=== PATIENT | female | born 1955 | race Caucasian/White ===

== ENCOUNTER 2017-08-16 10:17 | Inpatient (IN) | payer BC ==
--- NOTE | 2017-08-16 10:27 | DR.GENAD ---
- Discharge Plan Condition: Stable - Follow ups/Referrals Follow ups/Referrals: ,Misc [Primary Care Provider] - 3 days - Instructions
[2017-08-16 11:02] LABS: BASOPHILS # (AUTO) 0.1 X10^3/uL (0.0-0.1); BASOPHILS % (AUTO) 1.2 % (0.2-1.0); EOSINOPHILS # (AUTO) 0.6 x10^3/uL (0.0-0.2); EOSINOPHILS % (AUTO) 6.2 % (0.9-2.9); HEMATOCRIT 46.5 % (36.0-47.0); HEMOGLOBIN 16.3 g/dL (12.0-16.0); LYMPHOCYTES # (AUTO) 2.6 X10^3/uL (1.3-2.9); LYMPHOCYTES % (AUTO) 28.4 % (21.0-51.0); MEAN CORPUSCULAR HEMOGLOBIN 30.6 pg (27.0-34.0); MEAN CORPUSCULAR HGB CONC 35.1 g/dL (33.0-35.0); MEAN CORPUSCULAR VOLUME 87.2 fL (80.0-100.0); MEAN PLATELET VOLUME 9.7 fL (7.4-11.0); MONOCYTES # (AUTO) 0.5 x10^3/uL (0.3-0.8); MONOCYTES % (AUTO) 5.1 % (0.0-13.0); NEUTROPHILS # (AUTO) 5.5 x10^3/uL (2.2-4.8); NEUTROPHILS % (AUTO) 59.1 % (42.0-75.0); PLATELET COUNT 251 X10^3/uL (150.0-450.0); RED BLOOD COUNT 5.33 X10^6/uL (3.5-5.4); RED CELL DISTRIBUTION WIDTH 13.5 % (11.6-16.5); WHITE BLOOD COUNT 9.3 X10^3/uL (3.6-10.0)
--- NOTE | 2017-08-16 11:02 | CT ---
HISTORY: Left-sided weakness with slurred speech, possible stroke Study: CT brain without contrast Comparison: No priors Technique: Multiple axial images of the brain were obtained from the skull base to the vertex without administra tion of IV contrast. Coronal and sagittal images are also reviewed. Dose reduction techniques utilize d automatic exposure control. Findings: No acute intraparenchymal hemorrhage or mass can be identified. No extra-axial fluid collections are seen. No alteration in the attenuation of the brain parenchyma can be identified to suggest acute o r subacute ischemic change. The ventricular system is symmetric and nondilated. There is chronic pe riventricular white matter disease observed and age-appropriate generalized atrophy. IMPRESSION: 1. No acute intracranial process can be identified. 2. Chronic periventricular white matter disease likely on the basis of small vessel ischemic change. 3. Age-appropriate atrophic changes are seen. Reported By:
--- NOTE | 2017-08-16 11:18 | RAD ---
HISTORY: Chest pain Study: Single view of the chest Comparison: None Findings: The trachea is midline. The cardiac silhouette is enlarged. The lungs are clear without focal infilt rate or effusion. IMPRESSION: 1. No acute cardiopulmonary disease. Reported By:
[2017-08-16 11:20] LABS: BLOOD UREA NITROGEN 14 mg/dL (7-18); CALCIUM 9.7 mg/dL (8.5-10.1); CARBON DIOXIDE 30.1 mmol/L (21-32); CHLORIDE 97 mmol/L (98-107); COR NA(FOR HYPERGLY) 141 mmol/L (136-145); CREATININE 1.07 mg/dL (0.55-1.02); SODIUM 135 mmol/L (136-145); TROPONIN I < 0.02 ng/mL (0-1.5); eGFR BLACK RACES > 60 (>60); eGFR NON BLACK RACES 56 (>60)
[2017-08-16 11:23] LABS: ALANINE AMINOTRANSFERASE 47 Units/L (12-78); ALBUMIN 3.5 g/dL (3.4-5.0); ALKALINE PHOSPHATASE 117 Units/L (46-116); ASPARTATE AMINO TRANSFERASE 16 Units/L (15-37); CHOLESTEROL 269 mg/dL (0-200); CKMB % 3.5 % (<4); CREATINE KINASE 29 Units/L (26-192); CREATINE KINASE MB < 1.0 ng/mL (0-4.0); HDL CHOLESTEROL 54 mg/dL (40-60); MAGNESIUM 1.6 mg/dL (1.7-2.9); TOTAL PROTEIN 7.9 g/dL (6.4-8.2); TRIGLYCERIDES 442 mg/dL (0-150)
[2017-08-16] MEDS ORDERED: NIFEDIPINE CAP 10 MG PO ONE (15:40)
[2017-08-16] MEDS ORDERED: NIFEDIPINE CAP 10 MG ONE (15:50)
[2017-08-16 17:54] LABS: BILIRUBIN,URINE NEGATIVE (NEGATIVE); BLOOD/HEMOGLOBIN,URINE 1+ (NEGATIVE); GLUCOSE, URINE 4+ (NEGATIVE); KETONES,URINE 3+ (NEGATIVE); LEUKOCYTE ESTERASE ,URINE 1+ (NEGATIVE); NITRITES,URINE NEGATIVE (NEGATIVE); PROTEIN,URINE 3+ (NEGATIVE); UROBILINOGEN,URINE NORMAL (NORMAL)
[2017-08-16 17:56] LABS: CKMB % 2.2 % (<4); CREATINE KINASE 45 Units/L (26-192); CREATINE KINASE MB < 1.0 ng/mL (0-4.0); TROPONIN I < 0.02 ng/mL (0-1.5)
[2017-08-16 17:57] LABS: APPEARANCE,URINE HAZY (CLEAR); COLOR,URINE YELLOW (YELLOW)
[2017-08-16 18:00] LABS: BACTERIA,URINE TRACE /HPF (NEGATIVE); MUCUS,URINE MODERATE /HPF (NEGATIVE); RBC,URINE 0-2 /HPF (NEGATIVE); SQUAMOUS EPITHELIAL CELL,UR FEW /HPF (NEGATIVE)
[2017-08-16] MEDS: HumuLIN R SUBCUT PRN ×2 (18:09→20:53)
--- NOTE | 2017-08-16 18:53 | VAS ---
STUDY: CAROTID DUPLEX DOPPLER EXAMINATION History: Left facial weakness. Comparison: None. Technique: Multiple shen scale and color flow Doppler images of the right and left carotid arterial s ystem were obtained. The vertebral arterial system was evaluated as well. Findings: Normal color flow Doppler is seen throughout the right and left carotid arterial system. There is mild intimal thickening in the carotid arteries bilaterally. There is no evidence of hemodynamically significant stenosis in the internal carotid arteries on eith er side based on velocity criteria. Vertebral artery flow is antegrade on the right. The left vertebral artery is not visualized. IMPRESSION: 1. No evidence of hemodynamically significant stenosis in the internal carotid arteries. Reported By:
[2017-08-16] MEDS: SNACK - Diabetic Appropriate PO SCH (20:55)
[2017-08-16] MEDS ORDERED: RESTORIL CAP 15 MG PO PRN (22:23)
[2017-08-16 23:46] LABS: CKMB % 2.6 % (<4); CREATINE KINASE 38 Units/L (26-192); CREATINE KINASE MB < 1.0 ng/mL (0-4.0); TROPONIN I < 0.02 ng/mL (0-1.5)
[2017-08-17] MEDS ORDERED: ATIVAN INJ 2 MG VIAL IVP PRN (01:58)
[2017-08-17] MEDS ORDERED: ASPIRIN 81 MG CHEWTAB PO ONE (01:59)
[2017-08-17] MEDS ORDERED: ZESTRIL TAB 10 MG PO SCH (02:02)
[2017-08-17] MEDS ORDERED: PLAVIX PO ONE (02:02)
[2017-08-17] MEDS: HumuLIN R SUBCUT PRN ×4 (06:05→21:22)
[2017-08-17 06:12] LABS: BASOPHILS # (AUTO) 0.1 X10^3/uL (0.0-0.1); BASOPHILS % (AUTO) 0.8 % (0.2-1.0); EOSINOPHILS # (AUTO) 0.5 x10^3/uL (0.0-0.2); EOSINOPHILS % (AUTO) 4.9 % (0.9-2.9); HEMATOCRIT 43.9 % (36.0-47.0); HEMOGLOBIN 15.4 g/dL (12.0-16.0); LYMPHOCYTES # (AUTO) 3.3 X10^3/uL (1.3-2.9); MEAN CORPUSCULAR HEMOGLOBIN 30.2 pg (27.0-34.0); MEAN CORPUSCULAR VOLUME 86.3 fL (80.0-100.0); MONOCYTES # (AUTO) 0.7 x10^3/uL (0.3-0.8); MONOCYTES % (AUTO) 6.1 % (0.0-13.0); NEUTROPHILS # (AUTO) 6.4 x10^3/uL (2.2-4.8); NEUTROPHILS % (AUTO) 58.2 % (42.0-75.0); PLATELET COUNT 259 X10^3/uL (150.0-450.0); RED BLOOD COUNT 5.09 X10^6/uL (3.5-5.4); RED CELL DISTRIBUTION WIDTH 13.4 % (11.6-16.5); WHITE BLOOD COUNT 11.1 X10^3/uL (3.6-10.0)
[2017-08-17 06:29] LABS: ALANINE AMINOTRANSFERASE 40 Units/L (12-78); ALBUMIN 3.2 g/dL (3.4-5.0); ALKALINE PHOSPHATASE 101 Units/L (46-116); ASPARTATE AMINO TRANSFERASE 15 Units/L (15-37); BLOOD UREA NITROGEN 15 mg/dL (7-18); CALCIUM 9.5 mg/dL (8.5-10.1); CHLORIDE 101 mmol/L (98-107); COR CA(FOR HYPOALB) 10.1 mg/dL (8.5-10.1); COR NA(FOR HYPERGLY) 140 mmol/L (136-145); CREATININE 0.75 mg/dL (0.55-1.02); MAGNESIUM 1.6 mg/dL (1.7-2.9); SODIUM 137 mmol/L (136-145); TOTAL PROTEIN 7.2 g/dL (6.4-8.2); eGFR BLACK RACES > 60 (>60); eGFR NON BLACK RACES > 60 (>60)
[2017-08-17] MEDS ORDERED: GLUCOPHAGE ONE (09:00)
[2017-08-17] MEDS ORDERED: CALCIUM CARBONATE 500 MG PO SCH (09:00)
[2017-08-17] MEDS ORDERED: PATIENT'S HOME MEDICATION PO SCH ×3 (09:00)
[2017-08-17] MEDS: MOBIC TAB 15 MG PO SCH (09:03)
[2017-08-17] MEDS: GLUCOPHAGE PO SCH (09:03)
--- NOTE | 2017-08-17 13:25 | MRI ---
STUDY: MRI OF THE BRAIN WITHOUT AND WITH GADOLINIUM HISTORY: Dysarthria. Left facial weakness. Slurred speech. Technique: Multiplanar multi-sequence MRI of the brain was obtained utilizing standard departmental p rotocol. Sagittal and axial T1, axial T2, FLAIR, diffusion (DWI/ADC) images through the brain were pe rformed. 20 cc of Omniscan was administered intravenously without reported complication following acquisition of informed written consent. Post gadolinium axial and coronal T1 weighted images were also performed and reviewed. Comparison: Head CT from August 16, 2017. Findings: There is some image degradation due to patient motion. Pre gadolinium brain: The sulci, cisterns and ventricles are prominent consistent with diffuse volume loss. There are confluent and scattered foci of T2 prolongation in the periventricular and subcortic al white matter of both hemispheres. This is a nonspecific finding which likely represents microangio pathic change in a patient of this age. There is a focus of decreased diffusion in the right frontal rodrigez radiata. There is no evidence of acute hemorrhage, mass, mass effect, or midline shift. There are no abnormal intra-axial or extra-axi al fluid collections. The major intracranial vascular flow voids appear intact. The vertebral arteries are codominant. Post gadolinium brain: Following the uneventful administration of intravenous gadolinium, there is no evidence of abnormal parenchymal or leptomeningeal enhancement. IMPRESSION: 1. Acute to early subacute infarct in the right frontal rodrigez radiata. 2. Nonspecific white matter change and volume loss. Reported By:
--- NOTE | 2017-08-17 13:30 | MRI ---
STUDY: MRA OF THE BRAIN HISTORY: Dysarthria. Left facial weakness. Comparison: Brain MRI from the same date. Head CT from August 16, 2017. Technique: 3D [id number] imaging of the intracranial circulation was performed. Findings: There is image degradation due to patient motion. 3D [id number] MRA examination shows a short segment flow gap in the proximal left cavernous ICA. There is subsequent reconstitution of flow related enhancement in the left cavernous internal carotid artery. There is normal flow related enhancement in the right internal carotid artery, both middle c erebral arteries, and anterior cerebral arteries. There are bilateral posterior communicating arterie s. The basilar artery appears intact. The vertebral arteries appear codominant. IMPRESSION: 1. Severe degradation of MRA examination due to patient motion. Despite this limitation, note is mad e of a flow gap in the proximal left cavernous ICA with close reconstitution. 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 Reported By:
--- NOTE | 2017-08-17 13:35 | MRI ---
STUDY: MRA NECK History: Dysarthria. Left facial weakness. Slurred speech. Technique: A 2D [id number] MRA examination of the neck was performed. Subsequently, a 3D time-of- flight MRA examination of the neck was performed. 3D reformatted images were performed and reviewed. Comparison: None. Findings: MRA examination of the neck shows normal flow related enhancement of the major arteries of the neck. There is some atherosclerotic irregularity in the proximal left internal carotid artery, bu t this does not appear to be hemodynamically significant. There is a stenosis in the distal extracran ial ICAs bilaterally, just before the level of the carotid canals. Flow within the carotid canals mike ears to be within normal limits. The vertebral arteries are codominant. Both vertebral arteries appea r somewhat small. There is normal flow related enhancement in both vertebral arteries, to the level o f their dural insertion and to the basilar artery. Impression: Several foci of stenosis involving the proximal left ICA, and both internal carotid arteries near the skullbase. The stenoses do not appear to be hemodynamically significant. Reported By:
[2017-08-17] MEDS: PLAVIX PO SCH (14:17)
[2017-08-17] MEDS: ASPIRIN EC 81 MG PO SCH (14:17)
[2017-08-17] MEDS: ZESTRIL TAB 10 MG PO SCH (14:17)
--- NOTE | 2017-08-17 15:03 | DR.H&P ---
H&P - History & Physical for Day of: H&P Date: 08/16/17 - Chief Complaint Chief Complaint: slurred speech - Allergies Allergies/Adverse Reactions: Allergies Allergy/AdvReac Type Severity Reaction Status Date / Time No Known Drug Allergies Allergy Verified 08/16/17 15:38 - History of Present Illness History of Present Illness: patient is a 62-year-old white female who was admitted from the emergency room for further evaluation after sudden onset of slurred speech. Patient was apneic and [facility] staying with a family member who is currently a patient when she awakened with slurred speech. Patient states she just felt very sleepy. Patient was evaluated in the emergency room and was noted to be hypertensive patient had a CT scan of her head in the ER which was stable for acute findings she was admitted for further evaluation to rule out CVA. Patient has received cardiac enzymes and EKG as well as blood pressure control. Patient refused MRI of the brain on admission, we did order MRI for in the a.m. as well as carotid artery studies. - Past Medical History Past Medical History: Anxiety, Arthritis, Hypertension - Past Surgical History Surgical History: - Social History Does patient currently use any type of tobacco product: No Have you used tobacco products in the last 12 months: No Type of Tobacco Use: None Does any household member use tobacco: No Alcohol Use: None Drug Use: None - Medications Home Medications: Bisoprol/Hydrochlorothiazide [Ziac 2.5 mg/6.25 mg] 1 tab PO DAILY 08/16/17 [ History Confirmed 08/16/17] Calcium Carbonate [Oyster Shell Calcium 500] 500 mg PO DAILY 08/16/17 [History Confirmed 08/16/17] Glucosam/Chond/Hyalu/Cf Borate [Move Free Joint Health Ad] 1 tab PO DAILY [History Confirmed 08/16/17] Meloxicam [Mobic Tab 15 mg] 15 mg PO DAILY 08/16/17 [History Confirmed 08/16/17] Metformin HCl [Glucophage] 500 mg PO DAILY 08/16/17 [History Confirmed 08/16/17] Misc Home Med [Patient's Home Medication] 1 ea PO DAILY 08/16/17 [History Confirmed 08/16/17] Misc Home Med [Patient's Home Medication] 1 ea PO DAILY 09/28/17 [History Confirmed 08/16/17] [facility] Home Med [Patient's Home Medication] 1 ea PO DAILY 08/16/17 [History Confirmed 08/16/17] Raspberry Ketone [Raspberry Ketones] 100 mg PO DAILY 08/16/17 [History Confirmed 08/16/17] - Review of Systems Constitutional: Weakness Eyes: No Symptoms Reported ENT: No Symptoms Reported Respiratory: No Symptoms Reported Cardiovascular: No Symptoms Reported Gastrointestinal: No Symptoms Reported Genitourinary: No Symptoms Reported Musculoskeletal: No Symptoms Reported Skin: No Symptoms Reported Neurological: Change in Speech - Physical Exam Vital Signs: Temperature 98.3 F Pulse Rate [Right Radial] 66 Pulse Rate 89 Respiratory Rate 18 Blood Pressure [Left Arm] 159/69 Blood Pressure [Right Arm] 171/85 Blood Pressure 215/98 O2 Sat by Pulse Oximetry 96 Oriented: Normal Eyes: Normal Ear: Normal Nose: Normal Throat: Normal Respiratory: Clear Throughout Cardiovascular: Normal : Normal Auscultation: Bowel Sounds: Normal Palpation: Normal Tenderness: Normal Skin: Normal Musculoskeletal: Motor Deficit (right side mouth droop) Psychiatric: Anxiety Speech Pattern: Slurred - Assessment/Plan (1) Slurred speech Status: Acute Plan: admit, cardiac enzymes, ekg, bp control. MRI brain, carotid artery studies (2) Hypertensive urgency Status: Acute
[2017-08-17] MEDS: SNACK - Diabetic Appropriate PO SCH (20:30)
[2017-08-18] MEDS: HumuLIN R SUBCUT PRN ×2 (05:39→12:11)
[2017-08-18 06:22] LABS: BASOPHILS # (AUTO) 0.1 X10^3/uL (0.0-0.1); BASOPHILS % (AUTO) 0.6 % (0.2-1.0); EOSINOPHILS # (AUTO) 0.5 x10^3/uL (0.0-0.2); EOSINOPHILS % (AUTO) 4.3 % (0.9-2.9); HEMATOCRIT 46.8 % (36.0-47.0); HEMOGLOBIN 16.5 g/dL (12.0-16.0); LYMPHOCYTES # (AUTO) 3.6 X10^3/uL (1.3-2.9); LYMPHOCYTES % (AUTO) 30.8 % (21.0-51.0); MEAN CORPUSCULAR HEMOGLOBIN 30.8 pg (27.0-34.0); MEAN CORPUSCULAR HGB CONC 35.2 g/dL (33.0-35.0); MEAN CORPUSCULAR VOLUME 87.4 fL (80.0-100.0); MEAN PLATELET VOLUME 9.8 fL (7.4-11.0); MONOCYTES # (AUTO) 0.7 x10^3/uL (0.3-0.8); MONOCYTES % (AUTO) 5.7 % (0.0-13.0); NEUTROPHILS # (AUTO) 6.8 x10^3/uL (2.2-4.8); NEUTROPHILS % (AUTO) 58.6 % (42.0-75.0); PLATELET COUNT 276 X10^3/uL (150.0-450.0); RED BLOOD COUNT 5.35 X10^6/uL (3.5-5.4); RED CELL DISTRIBUTION WIDTH 13.3 % (11.6-16.5); WHITE BLOOD COUNT 11.6 X10^3/uL (3.6-10.0)
[2017-08-18 06:55] LABS: ALANINE AMINOTRANSFERASE 39 Units/L (12-78); ALBUMIN 3.3 g/dL (3.4-5.0); ALKALINE PHOSPHATASE 104 Units/L (46-116); ASPARTATE AMINO TRANSFERASE 19 Units/L (15-37); BLOOD UREA NITROGEN 18 mg/dL (7-18); CALCIUM 9.5 mg/dL (8.5-10.1); CARBON DIOXIDE 26.2 mmol/L (21-32); CHLORIDE 101 mmol/L (98-107); COR CA(FOR HYPOALB) 10.1 mg/dL (8.5-10.1); COR NA(FOR HYPERGLY) 141 mmol/L (136-145); CREATININE 0.79 mg/dL (0.55-1.02); MAGNESIUM 1.5 mg/dL (1.7-2.9); SODIUM 138 mmol/L (136-145); TOTAL PROTEIN 7.7 g/dL (6.4-8.2); eGFR BLACK RACES > 60 (>60); eGFR NON BLACK RACES > 60 (>60)
[2017-08-18 08:26] VITALS: BMI 36.9
[2017-08-18] MEDS ORDERED: TYLENOL 325 MG TAB PO PRN (08:31)
[2017-08-18] MEDS ORDERED: VITAMIN D3 PO SCH (09:00)
[2017-08-18] MEDS ORDERED: GLUCOPHAGE ONE (09:08)
[2017-08-18] MEDS: GLUCOPHAGE PO SCH (09:12)
[2017-08-18] MEDS: MOBIC TAB 15 MG PO SCH (09:12)
[2017-08-18] MEDS: PLAVIX PO SCH (09:12)
[2017-08-18] MEDS: ZESTRIL TAB 10 MG PO SCH (09:12)
[2017-08-18] MEDS: ASPIRIN EC 81 MG PO SCH (09:12)
[2017-08-18] MEDS ORDERED: NS 100 ML IV 100 ML IV ONE (14:02)
[2017-08-18 16:48] VITALS: BP 135/75
== END 2017-08-18 17:45 | disposition home or self-care (01) | DRG 66 ==
LOC: ER 10:28 → MED/SURG 14:07
PROVIDERS: ADMIT Internal Medicine; ATTEND Internal Medicine
DX: I63.8 Other cerebral infarction (principal); R47.81 Slurred speech; R29.810 Facial weakness; F41.8 Other specified anxiety disorders; M13.89 Other specified arthritis, multiple sites; I16.0 Hypertensive urgency; R94.31 Abnormal electrocardiogram [ECG] [EKG]; Z79.4 Long term (current) use of insulin; E11.65 Type 2 diabetes mellitus with hyperglycemia; R26.89 Other abnormalities of gait and mobility
CPT/HCPCS: 36415; 70450; 70544; 70547; 70553; 71010; 80053; 80061; 81001; 82009; 82550; 82553; 83036; 83735; 84484; 85025; 85384; 85610; 85730; 92523; 93005; 93010; 93880; 96365; 97535; 99284; A4222; J1815; J2060